=== PATIENT | female | born 1975 | race Hispanic/Latino ===

== ENCOUNTER 2018-06-18 15:55 | Outpatient (CLI) | payer BC | END 2018-06-18 15:56 | disposition home or self-care (01) | LOC: BICMAMMO 15:55 | PROVIDERS: ATTEND Obstetrics & Gynecology | DX: Z12.31 Encounter for screening mammogram for malignant neoplasm of breast (principal); N63.10 Unspecified lump in the right breast, unspecified quadrant; Z80.3 Family history of malignant neoplasm of breast | CPT/HCPCS: 77063; 77067 ==

== ENCOUNTER 2018-07-05 07:57 | Outpatient (CLI) | payer BC ==
--- NOTE | 2018-07-05 10:04 | ULT ---
LIMITED RIGHT BREAST ULTRASOUND: Date: 07-05-18 Provided Clinical History: Right breast mass. FINDINGS: Limited sonographic interrogation was performed of the right breast in the region of mammographic con cern. There is a 1.1 cm oval, circumscribed hypoechoic mass present at the 12 o'clock location of the right breast. There is no shadowing. IMPRESSION: BIRADS category 4 - suspicious abnormality. Ultrasound guided biopsy should be considered. Results an d recommendations were discussed with the patient and questions answered. POS: OFF
== END 2018-07-05 07:58 | disposition home or self-care (01) ==
LOC: BICULT 07:57
PROVIDERS: ATTEND Obstetrics & Gynecology
DX: N63.11 Unspecified lump in the right breast, upper outer quadrant (principal)

== ENCOUNTER → 2018-07-13 | Day surgery (SDC) | payer BC ==
--- NOTE | 2018-07-13 18:39 | ULT ---
SONOGRAPHIC GUIDED BIOPSY RIGHT BREAST MASS 07/13/18 HISTORY: Solid right breast mass. FINDINGS: After explaining the procedure and answering all questions, the hypoechoic mass at the 12 o'clock pos ition right breast was again visualized. Sterile technique, buffered local anesthesia, sonographic gu idance, and an inferior approach were used to carefully advance a 14 gauge biopsy needle to the level of the mass. Position is confirmed. Two core biopsy specimens were obtained without difficulty and s ubmitted to pathology for evaluation. Localization clips placed in the biopsy bed under sonographic c ontrol. Patient tolerated the procedure well and was eventually discharged in good condition. IMPRESSION: Technically successful sonographic guided biopsy right breast mass. Pathology is pending. POS: ROGELIO
== END ==
LOC: BICULT 12:35
PROVIDERS: ATTEND Obstetrics & Gynecology
PROC: 0HBT3ZX Excision of Right Breast, Percutaneous Approach, Diagnostic (ICD-10-PCS; principal; 2018-07-13)
DX: N63.10 Unspecified lump in the right breast, unspecified quadrant (principal)
CPT/HCPCS: 19083; 88305

== ENCOUNTER 2019-10-13 15:45 | Outpatient (CLI) | payer BC ==
--- NOTE | 2019-10-13 16:30 | MMO ---
Bilateral MAMMO Bilat Screen [facility]. CLINICAL HISTORY: Patient is 43 years old and is seen for screening. The patient has no family history of breast cancer. The patient has no personal history of cancer. The patient has a history of Excisional Biopsy in 2018 - benign. VIEWS: The views performed were: bilateral craniocaudal with tomosynthesis and bilateral mediolateral oblique with tomosynthesis. FILMS COMPARED: The present examination has been compared to a prior imaging study performed at [facility] on 06/18/2018. This study has been interpreted with the assistance of computer-aided detection. MAMMOGRAM FINDINGS: The breasts are heterogeneously dense, which could obscure a lesion on mammography. There is a stable oval mass with associated biopsy clip seen in the right breast. There are no suspicious masses, suspicious calcifications, or new areas of architectural distortion. IMPRESSION: THERE IS NO MAMMOGRAPHIC EVIDENCE OF MALIGNANCY. A ROUTINE FOLLOW-UP MAMMOGRAM IN 1 YEAR IS RECOMMENDED. THE RESULTS OF THIS EXAM WERE SENT TO THE PATIENT. ACR BI-RADS Category 2 - Benign finding MAMMOGRAPHY NOTE: 1. A negative mammogram report should not delay a biopsy if a dominant of clinically suspicious mass is present. 2. Approximately 10% to 15% of breast cancers are not detected by mammography. 3. Adenosis and dense breasts may obscure an underlying neoplasm. Reported by: EDMUNDO CROOK MD Electonically Signed: [id number]
== END 2019-10-13 15:46 | disposition home or self-care (01) ==
LOC: BICMAMMO 15:45
PROVIDERS: ATTEND Obstetrics & Gynecology
DX: Z12.31 Encounter for screening mammogram for malignant neoplasm of breast (principal); Z91.89 Other specified personal risk factors, not elsewhere classified
CPT/HCPCS: 77063; 77067

== ENCOUNTER 2020-10-17 15:16 | Outpatient (CLI) | payer BC | END 2020-10-17 15:17 | disposition home or self-care (01) | LOC: BICMAMMO 15:16 | PROVIDERS: ATTEND Obstetrics & Gynecology | DX: Z12.31 Encounter for screening mammogram for malignant neoplasm of breast (principal); Z91.89 Other specified personal risk factors, not elsewhere classified | CPT/HCPCS: 77063; 77067 ==